=== PATIENT | male | born 1955 | race Caucasian/White ===

== ENCOUNTER 2023-03-30 23:30 | Emergency (ER) | payer OTHER, SELFPAY ==
[2023-03-30 23:31] VITALS: PULSE 82; TEMP 36.6; BMI 33.0
--- NOTE | 2023-03-30 23:49 | EX.ED.CRITCA ---
HPI History of Present Illness Chief Complaint: CPR Informant: EMS Narrative Narrative: Patient is a 68-year-old male presenting with cardiac arrest. Per EMS report patient was found unresponsive and blue at his desk at work. Bystander CPR was started and continued then by EMS. ACLS protocol was called. His presenting rhythm was PEA. EMS reports that he oscillated between PEA and asystole however they were able to get ROSC once or twice however he would then go back into PEA. Patient received a total of 4 Amps of epinephrine. Initially his blood sugar was 37 however on recheck and after receiving D10 his blood sugar went up into the 400s. No known medical history at this time. Oral airway placed and route. Upon arrival to the emergency room patient was unresponsive, apneic but being bagged and did have a pulse. Patient has a history of GERD, tobacco use, type 2 diabetes mellitus, BPH, chronic low back pain, congenital renal cyst and bladder mass. PFSH PFS Medical History unable to obtain ROS ROS ED Review of Systems ROS Unobtainable: due to endotracheal tube EXAM Physical Exam Const Vital Signs: 03/30/23 23:31 03/30/23 23:35 Temperature 98 F Temperature Source Oral Pulse Rate 82 Oxygen Delivery Method Ambu-Bag Constitutional Narrative: Unresponsive General Appearance ED: pallor HEENT normocephalic and atraumatic Eyes Eyes Narrative: Pupils fixed, mid dilated Resp Resp Narrative: No spontaneous respirations, bagging. Breath sounds bilaterally with bagging, right slightly louder than left Cardio Cardio Narrative: Normal sinus rhythm, 2+ radial and femoral pulses upon initial arrival GI non-tender GI Narrative: Protuberant abdomen Neuro Neuro Narrative: GCS equals 3, unresponsive Skin General Skin Exam: pallor; Negative for jaundice MDM MDM MDM Narrative Medical decision making narrative: Patient arrives with a 40-minute downtime. Initially he was in sinus rhythm however within 5 minutes he progresses to PEA again. ACLS protocol was followed. Repeat blood sugar in the ER still in the 400s. He is given a total of 3 mg of IV epinephrine as well as 1 amp of sodium bicarb. On the first pulse check patient is in PEA. Bedside ultrasound of the heart performed by myself does show some organized cardiac activity with no purposeful movement and is still pulseless. Additional round of ACLS is performed. Patient continues to not have a pulse. Bedside ultrasound shows no organized rhythm but even more agonal cardiac movement. Given his downtime of almost 1 hour now, recurrent PEA arrest and no meaningful cardiac activity I do feel like that further resuscitative efforts are futile. Time of called at 2344. On bedside ultrasound there is no obvious cardiac tamponade pathology, free fluid in the abdomen. He did not have any risk factors for hyperkalemia that we are aware of any density signs of dialysis use. He is not cool feeling suggestive hypothermia as a cause of his arrest. Police was able to find the patient's phone and notify his brother Milan, next of kin. Critical Care Time Critical Care Time: Yes Critical care time (excluding procedures): 30-74 minutes (30) and Performing Direct Patient Care at Bedside Discharge Plan Triage Chief Complaint: CPR ED Provider: Ashley Marshall Dx/Rx/DC Orders Clinical Impression: Cardiac arrest Primary Care Provider: Alix Hays Referrals: Care Physician,No Primary [Non-Staff] - Disposition Disposition:
--- NOTE | 2023-03-31 02:24 | ED.RN ---
Police found a family contact for patient after patient arrived. Milan Arnold patients brother [phone], police contacted brother who lives in [place] and notified him of patients . This RN spoke to Milan on the phone and answered all his questions. He states he is next of kin that his has , and he does not have any biological children. Milan picks [facility]. At 0030 [facility] notified and they placed a hold on the body. [facility] calls at 0101 stating that they talked with their supervisor lead burning and due to knowing minimal history on patient they are going to release the body. At approximately 0100 patients step daughter and grandson call requesting information about patient. This RN explains to them over the phone that due to no paperwork or permission that i cannot give them any information over the phone. Sagar Funez states he is the patients POA. This RN states that unfortunately i cannot prove that over the phone and they can bring them paperwork in and I can talk with them. I also tell them that the patients brother Milan is next of kin and they can call him as he has been notified of patients condition. They state they do not talk to him and that they will come in. [facility] arrives at 0130. At approximately 0135 Obey and his mother arrive to the ED with POA paperwork. This RN and Dr Marshall notified them of the patients and answer all questions. They then state that the patient already has everything set up with [facility]. Kurt sent home. Family was allowed to come back and see patient. They then took the patients belongings home. [facility] contacted.
[2023-03-31 02:54] VITALS: PULSE 0
[2023-03-31 06:39] LABS: Bedside Glucose 414 mg/dL (74-106)
== END 2023-03-31 02:56 ==
PROVIDERS: Emergency Provider Emergency Medicine; PCP Internal Medicine; Visit Provider Emergency Medicine
DX: I46.9 Cardiac arrest, cause unspecified (principal); E11.65 Type 2 diabetes mellitus with hyperglycemia; F17.200 Nicotine dependence, unspecified, uncomplicated
CPT/HCPCS: 82962; 92950; 99282; J7030; A4216